=== PATIENT | female | born 1970 | race Caucasian/White ===

== ENCOUNTER 2017-08-30 07:00 | Day surgery (SDC) | END 2017-08-30 11:25 | disposition home or self-care (01) ==

== ENCOUNTER 2018-09-28 07:03 | Day surgery (SDC) | payer BC ==
[~2018-09-28] VITALS: Ht 154.9 cm; Wt 63.8 kg
[2018-09-28] VITALS (8 sets, daily range): BP systolic 98–108; BP diastolic 56–63; PULSE 68–89; RESP 12–20; Ht 154.9 cm; Wt 63.8 kg
[~2018-09-28 07:03] MED LIST: AMLO5TAB4 PO; BALANCED SALT SOLN 15 ML OPH IRRIG ONE; CEFAZOLIN 1 GM INJ ONE; LACTATED RINGER'S 1,000 ML IV SCH; LIDOCAINE 3.5% GEL TUBE OPER ONE; LOSA100T15 PO; MEDR10TA9 PO
[2018-09-28] MEDS: MOXIFLOXACIN 0.5% 3 ML OPH OPER SCH ×3 (07:58→08:08)
[2018-09-28] MEDS: PHENYLephrine 2.5% 15 ML OPH OPER SCH ×3 (07:58→08:08)
[2018-09-28] MEDS: TETRACAINE 0.5% 4 ML OPH OPER SCH ×3 (07:59→08:08)
[2018-09-28] MEDS: BROMFENAC SODIUM 1.7 ML OPH DROP OPER SCH ×3 (07:59→08:08)
--- NOTE | 2018-09-28 09:19 | HPN ---
Date/Time of Note Date/Time of Note DATE: 09/28/18 TIME: 09:19 Interval H&P Admission Note Pt. seen H&P reviewed: No system changes GAYLA POSEY D.O. Sep 28, 2018 09:19
[2018-09-28] MEDS ORDERED: LIDOCAINE 2%/EPI (MDV) 20ML INJ INJ ONE (09:20)
[2018-09-28] MEDS ORDERED: CARBACHOL 0.01% 1.5 ML OPH INJ ONE (09:21)
[2018-09-28] MEDS ORDERED: EPINEPHrine 1 MG INJ ONE (09:22)
[2018-09-28] MEDS ORDERED: TOBRAMYCIN 0.3% 3.5 GM OPH OINT ONE (09:22)
[2018-09-28] MEDS ORDERED: NA HYALURONATE/CHONDROITIN 0.5 ML SYG ONE (09:22)
--- NOTE | 2018-09-28 09:32 | PREAC ---
Date/Time of Note Date/Time of Note DATE: 09/28/18 TIME: :31 Anesthesia Eval and Record Evaluation Time Pre-Procedure Interview DATE: 09/28/18 TIME: : Age 48 Sex female NPO: 8 hrs Preoperative diagnosis LEFT EYE PTERYGIUM Planned procedure EXCISION LEFT EYE PTERYGIUM Past Medical History Past Medical History: Includes Cardio: HTN Surgery & Anesthesia Issues No known issue Meds Anticoagulation: No Beta Jaquelin within 24 hr: No Reason Beta Jaquelin not given: Pt. not on B-Jaquelin Reported Medications Medroxyprogesterone Acetate* (Medroxyprogesterone Acetate*) 10 Mg Tablet, 10 MG PO DAILY, TAB 08/30/17 Amlodipine Besylate* (Norvasc*) 5 Mg Tablet, 5 MG PO DAILY, TAB 08/30/17 Losartan Potassium* (Losartan Potassium*) 100 Mg Tablet, 100 MG PO DAILY, TAB 08/30/17 Current Medications Lactated Ringer's 1,000 ml @ 25 mls/hr Q24H IV Last administered on 09/28/18at 08:00; Admin Dose 25 MLS/HR; Start 09/28/18 at 06:30; Stop 09/28/18 at 18:00 Bromfenac Sodium (Bromday) 1 drop Q5 MIN X3 OPER Last administered on 09/28/18at 08:08; Admin Dose 1 DROP; Start 09/28/18 at 06:30; Stop 09/28/18 at 16:00 Phenylephrine HCl (Ak-Dilate 2.5%) 1 drop Q5MIN X 3 OPER Last administered on 09/28/18at 08:08; Admin Dose 1 DROP; Start 09/28/18 at 06:30; Stop 09/28/18 at 18:00 Moxifloxacin HCl (Vigamox) 1 drop Q5MIN X 3 OPER Last administered on 09/28/18at 08:08; Admin Dose 1 DROP; Start 09/28/18 at 06:30; Stop 09/28/18 at 18:00 Tetracaine HCl (Tetracaine 0.5% Steri-Unit Deepika) 1 drop Q5 MIN X3 OPER Last administered on 09/28/18at 08:08; Admin Dose 1 DROP; Start 09/28/18 at 06:30; Stop 09/28/18 at 18:00 Meds reviewed: Yes Allergies Coded Allergies: No Known Allergy (Unverified , 08/30/17) Allergies Reviewed: Yes Labs/Studies Labs Reviewed: Reviewed by anesthesiologist test: Negative Pre-procedure Exam Last vitals Vital Signs Date Temp Pulse Resp B/P (MAP) Pulse Ox O2 O2 Flow FiO2 Time Delivery Rate 09/28/18 99.3 87 16 108/61 99 08:23 (77) Airway: Adequate mouth opening, Adequate thyromental dist Mallampati: Mallampati II Teeth: Normal Lung: Normal Heart: Normal ASA Physical Status ASA physical status: 2 Emergency: None Planned Anesthetic General/MAC: MAC Planned Pain Management Parenteral pain med Pre-operative Attestations Prior to commencing anesthesia and surgery, the patient was re-evaluated, there was verification of: *The patient's identity *The results of appropriate recent lab work and preoperative vital signs *The above evaluation not changing prior to induction *Anesthetic plan, risk benefits, alternative and complications discussed with patient/family; questions answered; patient/family understands, accepts and wishes to proceed. Peter Barron M.D. Sep 28, 2018 09:32
[2018-09-28] MEDS ORDERED: MIDAZOLAM 1 MG/ML 2 ML INJ ONE (09:50)
[2018-09-28] MEDS ORDERED: FENTAnyl 50 MCG/ML VIAL ONE (09:50)
[2018-09-28] MEDS ORDERED: TETRACAINE 0.5% 4 ML OPH LEFT EYE ONE (10:12)
[2018-09-28] MEDS ORDERED: TOBRAMYCIN/DEXAMETH 3.5 GM OPH OINT LEFT EYE ONE (10:13)
--- NOTE | 2018-09-28 10:26 | SIPON ---
Date/Time of Note Date/Time of Note DATE: 09/28/18 TIME: 10:23 Operative Report Preoperative Diagnosis peripheral progressive pterigium, Lt eye. Postoperative Diagnosis Peripheral progressive pterigium, lt eye. Operation/Procedure Performed Removal of pterigium with sliding autograft, lt eye. Surgeon see signature line drug safety assistant none Anesthesia: MAC Estimated blood loss: none Transfusion Required none Specimen none Grafts/Implants none Complications none GAYLA POSEY D.O. Sep 28, 2018 10:26
[2018-09-28] MEDS ORDERED: TOBRAMYCIN/DEXAMETH 3.5 GM OPH OINT ONE (10:42)
--- NOTE | 2018-09-28 12:19 | PAC ---
Date/Time of Note Date/Time of Note DATE: 09/28/18 TIME: 12:19 Post-Anesthesia Notes Post-Anesthesia Note Last documented vital signs Vital Signs Date Temp Pulse Resp B/P (MAP) Pulse Ox O2 O2 Flow FiO2 Time Delivery Rate 09/28/18 99.3 87 16 108/61 99 08:23 (77) Activity: WNL Respiratory function: WNL Cardiovascular function: WNL Mental status: Baseline Pain reasonably controlled: Yes Hydration appropriate: Yes Nausea/Vomiting absent: Yes Peter Barron M.D. Sep 28, 2018 12:19
--- NOTE | 2018-09-28 13:36 | OPR ---
DATE OF OPERATION: 09/28/2018 SURGEON: Amber Oswald. ANESTHESIOLOGIST: Dr. Fields. PREOPERATIVE DIAGNOSIS: Progressive peripheral pterygium, left eye. POSTOPERATIVE DIAGNOSIS: Progressive peripheral pterygium, left eye. PLANNED PROCEDURE: Removal of pterygium with sliding conjunctival autograft, left eye. OPERATION PERFORMED: Removal of pterygium with sliding conjunctival autograft, left eye. ANESTHESIA: MAC. INFORMED CONSENT: The patient was given a detailed explanation regarding the option of treatment of her condition. She is aware of the possibility of complication which included but not limited to recurrence, scar formation, infection and cornea opacification, loss of vision, loss of the eye as an organ. Patient signed consent. It can be found in her chart. DESCRIPTION OF PROCEDURE: The patient brought to operating room in stable condition and placed on the operating table in supine position and her left eye was prepped for pterygium surgery in routine sterile technique. The eyelid retractor was placed into her left eye and 2% lidocaine with epinephrine preservative-free was injected subconjunctivally nasally. Then Bovie cautery used to demarcate body and tail of the pterygium. Then, Oma scissors were used to separate body of pterygium and tail from sclerae. It was followed by hemostasis with Bovie cautery. Then [place] knife used to separate head of the pterygium from the cornea. The cornea was scraped and 2 conjunctival flaps was created superiorly and inferiorly adjusting to the bare sclera. They were attached to each other and covered with sclera with 8-0 Vicryl suture. TobraDex ointment was instilled in the conjunctival sac, and the patient was transferred to recovery room in stable condition. The patch was placed over closed eyelid. Dictated By: AMBER OSWALD MD NT/MALIA Conf#: [id number] DID#: [id number] MTDD
== END 2018-09-28 11:37 | disposition home or self-care (01) ==
LOC: SDS 07:03
PROVIDERS: ATTEND Ophthalmology
DX: H11.052 Peripheral pterygium, progressive, left eye (principal); I10 Essential (primary) hypertension
CPT/HCPCS: 65426; 84703; J0171; J0690; J2250; J3010; Z7512; Z7610